=== PATIENT | female | born 1935 | race Caucasian/White ===

== ENCOUNTER 2016-07-25 07:08 | Inpatient (IN) | payer MEDICARE ==
[~2016-07-25] VITALS: Ht 162.6 cm; Wt 60.0 kg
[2016-07-25] VITALS (20 sets, daily range): BP systolic 130–217; BP diastolic 64–100; PULSE 49–68; RESP 16–24; TEMP 97.4–98; O2SAT 95–100
[~2016-07-25 07:08] MED LIST: HYDR-3533 PO; LOSA25TA31 PO; OS-CTAB3 PO; TAB-TAB PO
[2016-07-25] MEDS ORDERED: LOSA50TA PO (07:28)
[2016-07-25] MEDS ORDERED: NITROGLYCERIN 2% OINT 1 GM PACKET TOP ONE (07:30)
[2016-07-25] MEDS ORDERED: ASPIRIN 325 MG TAB PO ONE (07:30)
--- NOTE | 2016-07-25 07:45 | PD ---
HPI Chief Complaint: Chest Pain Time Seen by Provider: 07:21 Travel History International Travel<30 days: No Contact w/Intl Traveler<30days: No Traveled to known affect area: No History of Present Illness HPI 80-year-old female patient presents to the ER for 9 out of 10 substernal chest pains that started last night. She denies any nausea, vomiting, abdominal pains , shortness of breath, or any other symptoms. She denies any previous cardiac history. Modifying Factors: None Associated Signs & Symptoms: Chest pain Risk Factors: Hypertension PFSH Past Medical History Diminished Hearing: No GERD: Yes Genitourinary: Yes (INCONTINENCE) Hypertension: Yes Tetanus Vaccination: Unknown Influenza Vaccination: Yes Past Surgical History Neurologic Surgery: Yes (CERVICAL FUSION) Social History Alcohol Use: Yes (OCC WINE) Tobacco Use: No Substance Use: No Allergies-Medications (Allergen,Severity, Reaction): Coded Allergies: No Known Allergies (Verified , 01/21/14) Reported Meds & Prescriptions Reported Meds & Active Scripts Active Reported Losartan (Losartan Potassium) 50 Mg Tab 50 Mg PO DAILY Review of Systems Except as stated in HPI: all other systems reviewed are Neg Physical Exam Narrative GENERAL: Well developed elderly white female patient currently in mild distress. SKIN: Focused skin assessment warm/dry. HEAD: Atraumatic. Normocephalic. EYES: Pupils equal and round. No scleral icterus. No injection or drainage. ENT: No nasal bleeding or discharge. Mucous membranes pink and moist. NECK: Trachea midline. No JVD. CARDIOVASCULAR: Regular rate and rhythm. No murmur appreciated. Pulses are present and equal bilaterally. RESPIRATORY: No accessory muscle use. Clear to auscultation. Breath sounds equal bilaterally. GASTROINTESTINAL: Abdomen soft, non-tender, nondistended. Hepatic and splenic margins not palpable. MUSCULOSKELETAL: No obvious deformities. No clubbing. No cyanosis. No edema. NEUROLOGICAL: Awake and alert. No obvious cranial nerve deficits. Motor grossly within normal limits. Normal speech. PSYCHIATRIC: Appropriate mood and affect; insight and judgment normal. Data Data Last Documented VS Vital Signs Date Time Temp Pulse Resp B/P Pulse Ox O2 Delivery O2 Flow Rate FiO2 07/25/16 09:05 16 07/25/16 09:00 57 141/75 98 Room Air 07/25/16 08:30 2 07/25/16 07:23 98.0 Orders Electrocardiogram (07/25/16 ) Ckmb (Isoenzyme) Profile (07/25/16 07:21) Complete Blood Count With Diff (07/25/16 07:21) Comprehensive Metabolic Panel (07/25/16 07:21) Magnesium (Mg) (07/25/16 07:21) Prothrombin Time / Inr (Pt) (07/25/16 07:21) Act Partial Throm Time (Ptt) (07/25/16 07:21) Troponin I (07/25/16 07:21) Chest, Single Ap (07/25/16 07:21) Ecg Monitoring (07/25/16 07:21) Bilateral Bp Monitoring (07/25/16 07:21) Iv Access Insert/Monitor (07/25/16 07:21) Oximetry (07/25/16 07:21) Oxygen Administration (07/25/16 07:21) Aspirin (Aspirin) (07/25/16 07:30) Nitroglycerin 2% Oint (Nitroglycerin 2% (07/25/16 07:30) Sodium Chloride 0.9% Flush (Ns Flush) (07/25/16 07:30) Hydromorphone Pf Inj (Dilaudid Pf Inj) (07/25/16 08:45) Ondansetron Inj (Zofran Inj) (07/25/16 08:45) Nitroglycerin-Dextrose Inj (Nitroglyceri (07/25/16 08:45) Cta Thor Abd Aorta W Iv C W3d (07/25/16 08:32) Labs Laboratory Tests Test 07/25/16 07:30 White Blood Count 6.2 TH/MM3 Red Blood Count 4.84 MIL/MM3 Hemoglobin 13.8 GM/DL Hematocrit 42.8 % Mean Corpuscular Volume 88.6 FL Mean Corpuscular Hemoglobin 28.6 PG Mean Corpuscular Hemoglobin 32.3 % Concent Red Cell Distribution Width 13.5 % Platelet Count 241 TH/MM3 Mean Platelet Volume 8.1 FL Neutrophils (%) (Auto) 54.1 % Lymphocytes (%) (Auto) 32.0 % Monocytes (%) (Auto) 9.9 % Eosinophils (%) (Auto) 2.9 % Basophils (%) (Auto) 1.1 % Neutrophils # (Auto) 3.4 TH/MM3 Lymphocytes # (Auto) 2.0 TH/MM3 Monocytes # (Auto) 0.6 TH/MM3 Eosinophils # (Auto) 0.2 TH/MM3 Basophils # (Auto) 0.1 TH/MM3 CBC Comment DIFF FINAL Differential Comment Prothrombin Time 10.0 SEC Prothromb Time International 0.9 RATIO Ratio Activated Partial 24.2 SEC Thromboplast Time Sodium Level 139 MEQ/L Potassium Level 4.4 MEQ/L Chloride Level 103 MEQ/L Carbon Dioxide Level 29.0 MEQ/L Anion Gap 7 MEQ/L Blood Urea Nitrogen 23 MG/DL Creatinine 0.85 MG/DL Estimat Glomerular Filtration 64 ML/MIN Rate Random Glucose 95 MG/DL Calcium Level 9.6 MG/DL Magnesium Level 2.4 MG/DL Total Bilirubin 0.4 MG/DL Aspartate Amino Transf 24 U/L (AST/SGOT) Alanine Aminotransferase 22 U/L (ALT/SGPT) Alkaline Phosphatase 69 U/L Total Creatine Kinase 52 U/L Troponin I LESS THAN 0.02 NG/ML Total Protein 6.8 GM/DL Albumin 3.6 GM/DL MDM Medical Decision Making Medical Screen Exam Complete: Yes Emergency Medical Condition: Yes Medical Record Reviewed: Yes Interpretation(s) EKG shows sinus bradycardia rate of 50 bpm. No signs of acute ST changes. Laboratory Tests Test 07/25/16 07:30 Monocytes (%) (Auto) 9.9 % (0.0-8.0) Activated Partial 24.2 SEC Thromboplast Time (24.3-30.1) Blood Urea Nitrogen 23 MG/DL (7-18) Estimat Glomerular Filtration 64 ML/MIN (>89) Rate Troponin I LESS THAN 0.02 NG/ML (0.02-0.05) Last 24 hours Impressions Chest X-Ray 07/25/16 0721 Signed Impressions: Service Date/Time: Monday, July 25, 2016 07:32 - CONCLUSION: No acute cardiopulmonary abnormality is identified. Rony Cuellar MD Differential Diagnosis Chest painsACS versus dysrhythmias versus hypertensive urgency versus pneumonia Narrative Course Patient was significantly hypertensive. Patient was given aspirin and nitroglycerin in the ER with only mild improvement in chest discomfort. She was put on a nitroglycerin drip with good blood pressure response and improved chest pain. Lab work did not reveal any signs of acute processes and EKG did not show any signs of ST elevations. Chest x-ray was unremarkable. She was put in for CTA to rule out other acute chest processes including dissection. However, pulses are present and equal bilateral upper extremities. Case was discussed with family practice residents for admission for further evaluation. Diagnosis Primary Impression: Chest pain Additional Impression: Hypertensive urgency Admitting Information Admitting Physician Requests: Admit Liang Kaye MD Jul 25, 2016 07:45
[2016-07-25 07:49] LABS: AUTOMATED NEUTROPHIL # 3.4 TH/MM3 (1.8-7.7); BASOPHIL # 0.1 TH/MM3 (0-0.2); BASOPHIL % 1.1 % (0.0-2.0); EOSINOPHIL # 0.2 TH/MM3 (0-0.4); EOSINOPHIL % 2.9 % (0.0-4.0); HEMATOCRIT 42.8 % (35.0-46.0); HEMO FLAGS DIFF FINAL; MEAN CELL VOLUME 88.6 FL (80.0-100.0); MEAN CORPUSCULAR HEMOGLOBIN 28.6 PG (27.0-34.0); MEAN CORPUSCULAR HGB CONC 32.3 % (32.0-36.0); MONO % 9.9 % (0.0-8.0); NEUT % 54.1 % (16.0-70.0); PLATELET COUNT 241 TH/MM3 (150-450); RED BLOOD COUNT 4.84 MIL/MM3 (4.00-5.30); RED CELL DISTRIBUTION WIDTH 13.5 % (11.6-17.2); WHITE BLOOD COUNT 6.2 TH/MM3 (4.0-11.0)
[2016-07-25 07:57] LABS: APTT (PATIENT) 24.2 SEC (24.3-30.1); INTERNATIONAL NORMALIZED RATIO 0.9 RATIO
--- NOTE | 2016-07-25 08:08 | RADRPT ---
EXAM DATE/TIME: 07/25/2016 07:32 [facility] COMPARISON: No previous studies available for comparison. INDICATIONS : Chest pain starting today MEDICAL HISTORY : None. SURGICAL HISTORY : None. ENCOUNTER: Initial ACUITY: 1 day PAIN SCORE: 5/10 LOCATION: Center of chest FINDINGS: Portable AP view of the chest demonstrates a normal-sized cardiac silhouette. No effusion, consolidat ion, or pneumothorax is visualized. The bones and soft tissues demonstrate no acute abnormality. CONCLUSION: No acute cardiopulmonary abnormality is identified. Rony Cuellar MD on July 25, 2016 at 8:06 Board Certified Radiologist. This report was verified electronically.
[2016-07-25] MEDS: SODIUM CHLORIDE 0.9% FLUSH 10 ML FLUSH IVF PRN ×2 (08:15→08:40)
[2016-07-25 08:33] LABS: ALT (GPT) 22 U/L (10-53); ANION GAP 7 MEQ/L (5-15); AST (GOT) 24 U/L (15-37); BLOOD UREA NITROGEN 23 MG/DL (7-18); CHLORIDE 103 MEQ/L (98-107); GLOMERULAR FILTRATION RATE 64 ML/MIN (>89); MAGNESIUM 2.4 MG/DL (1.5-2.5); POTASSIUM 4.4 MEQ/L (3.5-5.1); SODIUM (NA) 139 MEQ/L (136-145)
[2016-07-25 08:37] LABS: ALKALINE PHOSPHATASE 69 U/L (45-117); TOTAL BILIRUBIN ADULT 0.4 MG/DL (0.2-1.0)
[2016-07-25 08:40] LABS: CREATINE KINASE 52 U/L (26-192)
[2016-07-25] MEDS ORDERED: NITROGLYCERIN-DEXTROSE INJ 250 ML IV SCH (08:45)
[2016-07-25] MEDS ORDERED: ONDANSETRON HCL 4 MG/2 ML VIAL IV PUSH ONE (08:45)
[2016-07-25] MEDS ORDERED: HYDROmorphone HCL PF 1 MG/ML VIAL IV PUSH ONE (08:45)
[2016-07-25] MEDS ORDERED: hydrALAZINE HCL 20 MG/ML VIAL IV PRN (10:15)
[2016-07-25] MEDS ORDERED: SODIUM CHLORIDE 0.9% FLUSH 10 ML FLUSH IV FLUSH PRN (10:15)
[2016-07-25] MEDS ORDERED: IOHEXOL 350 MG/ML 10 ML VIAL (for RAD DIAG) IV ONE (10:16)
--- NOTE | 2016-07-25 10:50 | HHI.HP ---
[facility] Service Family Medicine Primary Care Physician Anand Lorenzo MD Admission Diagnosis hypertensive urgency/chest pain Diagnoses: International Travel<30 Days: No Contact w/Intl Traveler<30days: No Known Affected Area: No History of Present Illness 80-year-old female with a past medical history significant for hypertension treated with losartan presents to the emergency department after being awoken with right shoulder and upper back pain. The patient states the pain was so severe that it awoke her from sleep. She was concerned that it may be from her heart and came to the emergency department. The patient also endorses chest pressure. Denies chest pain or diaphoresis. In the emergency department her blood pressure was found to be 207/93 and she was started on a nitroglycerin drip with appropriate reduction in her blood pressure. Her pain is also moderately improved with Dilaudid. A CTA was ordered, results pending. Patient denies headaches or blurry vision. (Diana Stearns MD R3) Review of Systems Other Denies fever or chills Denies blurry vision, otorrhea, rhinorrhea Denies sore throat and cough No chest pain, palpitations, shortness of breath No abdominal pain Denies constipation/diarrhea/nausea/vomiting Denies muscle pain/weakness No rashes (Diana Stearns MD R3) Past Family Social History Past Medical History Hypertension Osteoarthritis Past Surgical History Neck surgery 9 years ago for osteoarthritis Reported Medications Reported Meds & Active Scripts Active Reported Losartan (Losartan Potassium) 50 Mg Tab 50 Mg PO DAILY (Diana Stearns MD R3) Allergies: Coded Allergies: No Known Allergies (Verified , 01/21/14) Family History Father at 56 from cardiac complications. Mother healthy at 94. Social History Never smoker. Occasional alcohol. Denies illicit drugs. (Diana Stearns MD R3) Physical Exam Vital Signs Vital Signs Date Time Temp Pulse Resp B/P Pulse Ox O2 Delivery O2 Flow Rate FiO2 07/25/16 09:05 16 07/25/16 09:00 57 16 141/75 98 Room Air 07/25/16 08:30 52 16 207/93 98 Nasal Cannula 2 07/25/16 08:00 53 16 197/64 100 Nasal Cannula 2 07/25/16 07:27 51 16 190/88 98 Room Air 07/25/16 07:27 16 97 Room Air 07/25/16 07:27 97 Nasal Cannula 2 07/25/16 07:25 49 16 98 Room Air 07/25/16 07:23 98.0 49 16 194/85 99 07/25/16 07:11 57 24 217/100 99 Room Air Physical Exam Gen.: No acute distress Head: Normocephalic. Atraumatic. EENT: Pupils equal round and reactive to light. Nose without drainage. Airway intact. Throat without injection. Cardiovascular: Regular rate and rhythm. No murmurs, rubs or gallops. Respiratory: Lungs clear to auscultation bilaterally. No wheezes or rhonchi. Abdomen: Soft, nontender, nondistended. No peritoneal signs. Musculoskeletal: No gross deformities. No edema. Right shoulder and upper back nontender to palpation. Skin: No obvious rashes or erythema. Neuro: Sensory and motor grossly intact. Cranial nerves II through XII grossly intact. Psych: Appropriate mood and affect Laboratory Laboratory Tests Test 07/25/16 07:30 White Blood Count 6.2 Red Blood Count 4.84 Hemoglobin 13.8 Hematocrit 42.8 Mean Corpuscular Volume 88.6 Mean Corpuscular Hemoglobin 28.6 Mean Corpuscular Hemoglobin 32.3 Concent Red Cell Distribution Width 13.5 Platelet Count 241 Mean Platelet Volume 8.1 Neutrophils (%) (Auto) 54.1 Lymphocytes (%) (Auto) 32.0 Monocytes (%) (Auto) 9.9 Eosinophils (%) (Auto) 2.9 Basophils (%) (Auto) 1.1 Neutrophils # (Auto) 3.4 Lymphocytes # (Auto) 2.0 Monocytes # (Auto) 0.6 Eosinophils # (Auto) 0.2 Basophils # (Auto) 0.1 CBC Comment DIFF FINAL Differential Comment Prothrombin Time 10.0 Prothromb Time International 0.9 Ratio Activated Partial 24.2 Thromboplast Time Sodium Level 139 Potassium Level 4.4 Chloride Level 103 Carbon Dioxide Level 29.0 Anion Gap 7 Blood Urea Nitrogen 23 Creatinine 0.85 Estimat Glomerular Filtration 64 Rate Random Glucose 95 Calcium Level 9.6 Magnesium Level 2.4 Total Bilirubin 0.4 Aspartate Amino Transf 24 (AST/SGOT) Alanine Aminotransferase 22 (ALT/SGPT) Alkaline Phosphatase 69 Total Creatine Kinase 52 Troponin I LESS THAN 0.02 Total Protein 6.8 Albumin 3.6 (Diana Stearns MD R3) Result Diagram: 07/25/1672907/25/16729 Assessment and Plan Assessment and Plan 80-year-old female with past medical history of hypertension presents to the emergency department with right shoulder pain and chest pressure and hypertensive urgency. 1. Hypertensive urgency Patient started on nitro drip with corresponding decrease in BP Started on by mouth nifedipine, wean drip as appropriate Hydralazine when necessary Continue home losartan Telemetry 2. Right upper shoulder pain and chest pressure EKG significant for heart rate of 50 otherwise within normal limits Troponin less than 0.02 Trend cardiac enzymes and EKGs 3. Osteoarthritis Continue home tramadol 4. FEN Hep-Lock IV Electrolytes: Replete when necessary Heart healthy diet Heparin 5000 units every 8 hours Code Status Full code (Diana Stearns MD R3) Attending Attestation The patient has been seen and examined. The chart and all resident notes have been reviewed. I agree that inpatient care is appropriate and that a two midnight stay is expected for the reasons documented in the resident history and physical. I have discussed this with the resident and certify the resident s order for inpatient admission. All systems reviewed and neg except as stated in HPI. (Michelle Tapia MD) Problem List: (1) Chest pain Status: Acute (2) Hypertensive urgency Status: Acute (3) HTN (hypertension) Status: Acute (4) OA (osteoarthritis) Status: Acute (Diana Stearns MD R3) Physician Certification 2 Midnight Certification Type: Admission for Inpatient Services Order for Inpatient Services The services are ordered in accordance with Medicare regulations or non- Medicare payer requirements, as applicable. In the case of services not specified as inpatient-only, they are appropriately provided as inpatient services in accordance with the 2-midnight benchmark. Estimated LOS (days): 2 2 days is the estimated time the patient will need to remain in the hospital, assuming treatment plan goals are met and no additional complications. Post-Hospital Plan: Not yet determined (Diana Stearns MD R3) Diana Stearns MD R3 Jul 25, 2016 10:50 Michelle Tapia MD Jul 26, 2016 11:02
--- NOTE | 2016-07-25 11:03 | RADRPT ---
EXAM DATE/TIME: 07/25/2016 09:58 [facility] COMPARISON: CHEST SINGLE AP, July 25, 2016, 7:32. INDICATIONS : Chest pain that radiates around to right shoulder. IV CONTRAST: 98 cc Omnipaque 350 (iohexol) IV RADIATION DOSE: 11.50 CTDIvol (mGy) MEDICAL HISTORY : Hypertension. Gastroesophageal reflux disease. SURGICAL HISTORY : Fusion, cervical. ENCOUNTER: Initial ACUITY: 1 day PAIN SCALE: 5/10 LOCATION: Right chest and shoulder. TECHNIQUE: Volumetric scanning was performed using a multi-row detector CT scanner. The data was post processed with a variety of visualization algorithms including full volume maximum intensity projection, multi -planar sliding thin slab reformation, curved planar reformation, and surface rendering techniques. Using automated exposure control and adjustment of the mA and/or kV according to patient size, radiat ion dose was kept as low as reasonably achievable to obtain optimal diagnostic quality images. FINDINGS: LUNGS: There is no consolidation or pneumothorax. In the left lower lobe there is a 4 mm noncalcified pulmon bart nodule. In the right upper lobe there is an area of groundglass opacity measuring approximately 1 7 mm. In the right middle lobe there is a 4 mm groundglass attenuation nodule and there is volume los s in the medial segment of the right middle lobe. MEDIASTINUM: No lymphadenopathy. ABDOMEN: There is a 14 mm cyst within the left lobe of the liver and a 9 mm low density lesion is present in t he right lobe of the liver does not meet criteria for a cyst. There are no calcified gallstones. The adrenal glands, spleen, kidneys, and pancreas demonstrate no acute finding. There is a 10 mm cyst in the left mid kidney. There is a nonobstructive bowel gas pattern. Small hiatal hernia is present. PELVIS: No acute findings. THORACIC AORTA: The thoracic aortic root is normal with normal branching of the great vessels. There is no evidence of aneurysm or dissection. There is atherosclerotic change. No PE is identified. ABDOMINAL AORTA: The aorta is normal in caliber without aneurysm or dissection. The renal arteries are patent bilater ally. The proximal celiac and superior mesenteric arteries are patent and normal in diameter. PELVIC VESSELS: The internal iliac and external iliac vessels are patent without aneurysm or stenosis. CONCLUSION: 1. Atherosclerotic disease of the aorta. No aneurysm or dissection is present. 2. There is a 17 mm groundglass attenuation nodule in the right upper lobe and 4 mm nodule in the lef t lower lobe. Suggest correlating with outside prior studies to assess for chronicity of these findin gs. If none are available, recommend 3 month followup noncontrast chest CT to assess for change. 3. There is a 9 mm low-density lesion in the right liver that is incompletely characterized but does not have features to suggest a cyst. Again, suggest correlating with prior imaging studies. If none a re available consider further evaluation of an outpatient elective basis. Rony Cuellar MD on July 25, 2016 at 10:51 Board Certified Radiologist. This report was verified electronically.
[2016-07-25] MEDS: HEPARIN SODIUM - SQ 10,000 UNITS/ML VIAL SQ SCH ×2 (13:03→17:04)
--- NOTE | 2016-07-25 13:04 | EKG ---
Date Performed: 07/25/2016 Time Performed: 07:24:52 PTAGE: 80 years EKG: SINUS BRADYCARDIA MARKED LEFT AXIS DEVIATION ABNORMAL ECG NO PREVIOUS TRACING DOCTOR: Chauncey Nuñez Interpretating Date/Time 07/25/2016 13:02:09
[2016-07-25 14:12] LABS: CREATINE KINASE 73 U/L (26-192)
[2016-07-25] MEDS: NIFEdipine 20 MG CAP PO SCH ×2 (14:23→22:00)
[2016-07-25] MEDS: traMADol HCL 50 MG TAB PO PRN (17:04)
[2016-07-25 20:56] LABS: CREATINE KINASE 98 U/L (26-192)
[2016-07-25] MEDS: SODIUM CHLORIDE 0.9% FLUSH 10 ML FLUSH IV FLUSH SCH (21:00)
[2016-07-26] MEDS: HEPARIN SODIUM - SQ 10,000 UNITS/ML VIAL SQ SCH (02:16)
[2016-07-26 03:00] VITALS: PULSE 57
[2016-07-26 03:27] VITALS: BP 140/75; PULSE 58; RESP 16; TEMP 97.7; O2SAT 96
[2016-07-26 05:29] LABS: AUTOMATED NEUTROPHIL # 4.6 TH/MM3 (1.8-7.7); BASOPHIL % 0.7 % (0.0-2.0); EOSINOPHIL # 0.1 TH/MM3 (0-0.4); EOSINOPHIL % 1.4 % (0.0-4.0); HEMATOCRIT 42.5 % (35.0-46.0); HEMO FLAGS DIFF FINAL; LYMPH % 21.5 % (9.0-44.0); LYMPHOCYTE # 1.4 TH/MM3 (1.0-4.8); MEAN CELL VOLUME 87.7 FL (80.0-100.0); MEAN CORPUSCULAR HEMOGLOBIN 29.5 PG (27.0-34.0); MEAN CORPUSCULAR HGB CONC 33.6 % (32.0-36.0); MONO % 7.9 % (0.0-8.0); NEUT % 68.5 % (16.0-70.0); PLATELET COUNT 249 TH/MM3 (150-450); RED BLOOD COUNT 4.85 MIL/MM3 (4.00-5.30); RED CELL DISTRIBUTION WIDTH 13.9 % (11.6-17.2); WHITE BLOOD COUNT 6.7 TH/MM3 (4.0-11.0)
[2016-07-26 05:54] LABS: BICARBONATE 33.6 MEQ/L (21.0-32.0); POTASSIUM 3.7 MEQ/L (3.5-5.1)
[2016-07-26] MEDS: NIFEdipine 20 MG CAP PO SCH (06:28)
[2016-07-26 07:30] VITALS: BP 150/80; PULSE 60; RESP 18; TEMP 97.8; O2SAT 98
[2016-07-26 08:00] VITALS: PULSE 60
[2016-07-26] MEDS: traMADol HCL 50 MG TAB PO PRN (08:18)
[2016-07-26] MEDS: SODIUM CHLORIDE 0.9% FLUSH 10 ML FLUSH IV FLUSH SCH (08:19)
--- NOTE | 2016-07-26 08:28 | HHI.FPPN ---
Subjective Subjective Patient seen and examined with the resident team this am. Case reviewed and discussed Please refer to resident H&P for further details regarding HPI, ROS, PMH, SurgHx Fh and SocHx In summary, patient is an 80yo F, patient of Dr. Lorenzo, presenting with hypertensive urgency vs emergency She reports a history of difficult to control BPs in the past She is seen this am in her hospital room Chest pain and shoulder pain have resolved. She wants to go home. BP under much better controlled and patient was weaned off of Nitro gtt yesterday afternoon [facility] Objective Objective Last Impressions Aorta CTA 07/25/16831 Signed Impressions: Service Date/Time: Monday, July 25, 2016 09:58 - CONCLUSION: 1. Atherosclerotic disease of the aorta. No aneurysm or dissection is present. 2. There is a 17 mm groundglass attenuation nodule in the right upper lobe and 4 mm nodule in the left lower lobe. Suggest correlating with outside prior studies to assess for chronicity of these findings. If none are available, recommend 3 month followup noncontrast chest CT to assess for change. 3. There is a 9 mm low-density lesion in the right liver that is incompletely characterized but does not have features to suggest a cyst. Again, suggest correlating with prior imaging studies. If none are available consider further evaluation of an outpatient elective basis. Rony Cuellar MD Chest X-Ray 07/25/1621 Signed Impressions: Service Date/Time: Monday, July 25, 2016 07:32 - CONCLUSION: No acute cardiopulmonary abnormality is identified. Rony Cuellar MD Laboratory Tests - Abnormals Test 07/25/16 07/25/16 07/26/16 13:15 19:29 04:54 Troponin I LESS THAN 0.02 LESS THAN 0.02 NG/ML NG/ML Carbon Dioxide Level 33.6 MEQ/L Anion Gap 4 MEQ/L Estimat Glomerular Filtration 88 ML/MIN Rate Random Glucose 114 MG/DL Vital Signs 07/25/16 07/25/16 07/25/16 07/25/16 08:30 09:00 09:05 10:00 Pulse 52 57 64 Resp 16 16 16 16 B/P 207/93 141/75 156/77 Pulse Ox 98 98 98 O2 Delivery Nasal Cannula Room Air Nasal Cannula O2 Flow Rate 2 2 07/25/16 07/25/16 07/25/1617/17 11:00 12:00 13:00 14:00 Temp 97.6 Pulse 54 50 52 56 Resp 16 16 16 18 B/P 142/82 141/68 130/64 158/77 Pulse Ox 100 98 98 95 O2 Delivery Nasal Cannula Nasal Cannula Nasal Cannula O2 Flow Rate 2 2 2 07/25/16 07/25/16 07/25/16 07/25/16 15:00 15:36 15:36 15:36 Temp 97.4 Pulse 52 51 54 Resp 16 B/P 137/77 Pulse Ox 96 96 O2 Delivery Room Air 07/25/16 07/25/16 07/25/16 07/25/16 16:00 17:00 18:00 19:00 Pulse 53 59 58 66 07/25/16 07/25/16 07/25/16 07/25/16 20:00 20:00 23:00 23:45 Temp 97.8 97.8 Pulse 68 55 56 Resp 16 16 B/P 168/94 134/79 Pulse Ox 96 96 96 O2 Delivery Room Air 07/26/16 07/26/16 03:00 03:27 Temp 97.7 Pulse 57 58 Resp 16 B/P 140/75 Pulse Ox 96 INTAKE & OUTPUT 07/26/16 07:00 Intake Total 720 ml Output Total 800 ml Balance -80 ml Physical exam GENERAL: wdwn female, sitting up in bed, communicative. SKIN: Warm and dry. No rashes HEAD: Normocephalic. AT EYES: No scleral icterus. No injection or drainage. ENT: OP clear. mmm NECK: Supple, trachea midline. No JVD or lymphadenopathy. CARDIOVASCULAR: Regular rate and rhythm without murmurs, gallops, or rubs. RESPIRATORY: Breath sounds equal bilaterally. No accessory muscle use. GASTROINTESTINAL: Abdomen soft, non-tender, nondistended. MUSCULOSKELETAL: No cyanosis, or edema. No calf tenderness BACK: Nontender without obvious deformity. No CVA tenderness. NEURO: AWake and alert. Normal speech. CN grossly intact. Assessment Assessment 80yoF. with: Hypertensive urgency vs emergency Uncontrolled htn Osteoarthritis Hyperglycemia PLAN PLAN Serial CE and ekg Blood pressure control UA for renal damage Titrate oral anti-hypertensives as needed Continue home meds as appropriate Patient seen and examined. Case reviewed and discussed Agree with plan of care as discussed with me and documented in the resident note. CTA findings discussed with patient. She understands she would benefit from outpatient follow-up of liver and lung lesions in 3 months. Patient may be able to be discharged pending BP control She has a home BP cuff and was informed to take this at home and record to bring to PCP She has an appt this Wednesday Michelle Tapia MD Jul 26, 2016 08:28
[2016-07-26 09:00] VITALS: PULSE 58
[2016-07-26] MEDS ORDERED: NIFE20 PO (11:13)
--- NOTE | 2016-07-26 11:14 | HHI.DCPOC ---
Discharge Care Plan Goals to Promote Your Health * To prevent worsening of your condition and complications follow all discharge instructions * To maintain your health at the optimal level take all medications as prescribed Directions to Meet Your Goals Take your medications as prescribed Follow your dietary instruction Follow activity as directed Keep your appointments as scheduled Take your immunizations and boosters as scheduled If your symptoms worsen call your PCP, if no PCP go to Urgent Care Center or Emergency Room Smoking is Dangerous to Your Health. Avoid second hand smoke Call the 24-hour hour crisis hotline for domestic abuse at Diana Stearns MD R3 Jul 26, 2016 11:14
--- NOTE | 2016-07-26 12:18 | EKG ---
Date Performed: 07/25/2016 Time Performed: 20:37:46 PTAGE: 80 years EKG: Sinus bradycardia with borderline 1st degree A-V block Left axis deviation Abnormal ECG PREVIOUS TRACING : 07/25/2016 13.24 Compared to prior tracing no significant change DOCTOR: Chauncey Nuñez Interpretating Date/Time 07/26/2016 12:14:11
--- NOTE | 2016-07-26 12:30 | EKG ---
Date Performed: 07/25/2016 Time Performed: 13:24:26 PTAGE: 80 years EKG: SINUS BRADYCARDIA WITH FIRST DEGREE AV BLOCK LEFT ANTERIOR FASCICULAR BLOCK ABNORMAL ECG PREVIOUS TRACING : 07/25/2016 07.24 Compared to prior tracing no significant change DOCTOR: Chauncey Nuñez Interpretating Date/Time 07/26/2016 12:26:15
== END 2016-07-26 11:34 | disposition home or self-care (01) | DRG 305 ==
LOC: NEPC 07:08 → NEDA 10:02 → HCIN 13:54
PROVIDERS: ADMIT Family Medicine; ATTEND Family Medicine
DX: I16.0 Hypertensive urgency (principal); K76.9 Liver disease, unspecified; I16.1 Hypertensive emergency; M19.90 Unspecified osteoarthritis, unspecified site; I10 Essential (primary) hypertension; R73.9 Hyperglycemia, unspecified; R91.8 Other nonspecific abnormal finding of lung field
CPT/HCPCS: 71010; 71275; 74174; 80048; 80053; 82550; 83735; 84484; 85025; 85610; 85730; 93005; 96365; 96375; J1170; J1644; J2405; Q9967